=== PATIENT | male | born 1935 | race African-American/Black ===

== ENCOUNTER 2019-10-26 14:23 | Emergency (ER) | payer BC, MEDICARE ==
[~2019-10-26] VITALS: Ht 182.9 cm; Wt 79.0 kg
[2019-10-26 16:00] LABS: HEMATOCRIT. 39.1 % (42.0-52.0); HEMOGLOBIN. 12.6 g/dL (14.0-18.0); MEAN CORPUSCULAR HEMOGLOBIN 29.1 pg (28.0-32.0); MEAN CORPUSCULAR VOLUME 90.1 fL (80.0-94.0); MEAN PLATELET VOLUME 9.3 fl (7.4-10.4); PLATELET 135 x1000/uL (130-400); RED BLOOD CELL COUNT 4.33 mill/uL (4.7-6.1); RED CELL DISTRIBUTION WIDTH 19.3 % (11.6-14.6)
[2019-10-26 16:04] LABS: CHLORIDE 106 mEq/L (98-107)
[2019-10-26 16:13] LABS: D-DIMER 1.07 mg/L FEU (<0.50); INR 1.3; PARTIAL THROMBOPLASTIN TIME 24.7 sec (23.4-31.0); PROTHROMBIN TIME 13.7 sec (9.6-11.0)
[2019-10-26 16:39] LABS: PLATELET ESTIMATE NORMAL
[2019-10-26] MEDS ORDERED: FUROSEMIDE 40MG/4ML VIAL IV ONE (17:30)
[2019-10-26] MEDS ORDERED: NITROGLYCERIN OINT 1GM/INCH UDPKT TD ONE (17:30)
[2019-10-26] MEDS ORDERED: ASPIRIN 81MG TABLET PO ONE (17:30)
[2019-10-26] MEDS ORDERED: FUROSEMIDE 100MG/10ML VIAL IVP NR (19:00)
[2019-10-26] MEDS ORDERED: ACETAMINOPHEN 325MG TABLET PO PRN (19:00)
[2019-10-26] MEDS ORDERED: DOCUSATE SODIUM 100MG CAPSULE PO PRN (19:00)
[2019-10-26] MEDS ORDERED: IOHEXOL-350 100 ML BOTTLE ONE (19:29)
[2019-10-26] MEDS ORDERED: ENOXAPARIN 40MG/0.4ML SYR SUBCUT SCH (20:00)
[2019-10-26] MEDS ORDERED: ATORVASTATIN CALCIUM 40MG TABLET PO SCH (21:00)
[2019-10-26] MEDS ORDERED: ZOLPIDEM TARTRATE 5MG TABLET PO PRN (21:00)
[2019-10-27] MEDS: METOPROLOL TARTRATE 25MG TABLET PO SCH ×3 (02:12→13:05)
[2019-10-27] MEDS ORDERED: CLONIDINE 0.1MG TABLET PO PRN (04:15)
[2019-10-27 06:21] LABS: HEMOGLOBIN. 13.9 g/dL (14.0-18.0); MEAN CORPUSCULAR HEMOGLOBIN 29.4 pg (28.0-32.0); MEAN CORPUSCULAR VOLUME 90.8 fL (80.0-94.0); MEAN PLATELET VOLUME 9.1 fl (7.4-10.4); PLATELET 131 x1000/uL (130-400); RED BLOOD CELL COUNT 4.73 mill/uL (4.7-6.1); RED CELL DISTRIBUTION WIDTH 19.2 % (11.6-14.6)
[2019-10-27 06:24] LABS: CHLORIDE 105 mEq/L (98-107)
[2019-10-27 06:51] LABS: FOLIC ACID (FOLATE) SERUM 10.8 ng/mL (>5.38)
[2019-10-27 07:11] LABS: PLATELET ESTIMATE NORMAL
[2019-10-27 08:57] LABS: BG BASE EXCESS -1.3 mmol/L (-2.0-2.0); BG CARBOXYHEMOGLOBIN 1.1 % (0.5-1.5); BG DEOXYHEMOGLOBIN 3.7 % (0.0-5.0); BG FRACTION INSPIRED OXYGEN 21; BG HCO3 ACT 23.2 mmol/L (22.0-26.0); BG METHEMOGLOBIN 0.3 % (0.0-1.5); BG OXYGEN SATURATION 96.2 % (92.0-98.5); BG OXYHEMOGLOBIN 94.9 % (94.0-97.0); BG PCO2 38.5 mmHg (35.0-45.0); BG PH 7.398 (7.350-7.450); BG PO2 83.3 mmHg (75.0-100.0); BG SAMPLE SITE RIGHT BRACHIAL; BG TOTAL HEMOGLOBIN 13.3 g/dL (12.0-18.0); BG VENT MODE ROOM AIR
[2019-10-27] MEDS ORDERED: ALLOPURINOL 300 MG TABLET PO SCH (09:00)
[2019-10-27] MEDS ORDERED: SODIUM CHLORIDE 0.9% INJ 3ML FLUSH IVF SCH (14:00)
[2019-10-27 16:43] VITALS: BP 146/90
== END 2019-10-27 17:00 | disposition home or self-care (01) ==
LOC: ER 14:45 → EDBEDREQ 17:30 → CANRESERV 10-27 15:25 → ENRESERV 10-27 15:25 → SUPCPDRO 10-27 15:28 → CANBEDREQ 10-27 16:34 → ER 10-27 17:00
DX: I11.0 Hypertensive heart disease with heart failure (principal); I50.9 Heart failure, unspecified; R60.0 Localized edema; H40.9 Unspecified glaucoma; M10.9 Gout, unspecified; E78.00 Pure hypercholesterolemia, unspecified; M06.9 Rheumatoid arthritis, unspecified
CPT/HCPCS: 36415; 36600; 71045; 71275; 80053; 82375; 82607; 82746; 82805; 83880; 84443; 84484; 85025; 85379; 85610; 85730; 93005; 93970; 96372; 96374; 99285; J1650; J1940; Q9967

== ENCOUNTER 2020-05-06 09:38 | Inpatient (IN) | payer BC ==
[~2020-05-06] VITALS: Ht 175.3 cm; Wt 90.7 kg
[2020-05-06] MEDS ORDERED: SODIUM CHLORIDE 0.9% 1000ML BAG (SEPSIS BOLUS) IV ONE (10:00)
[2020-05-06] MEDS ORDERED: PIPERACILLIN/TAZOBACTAM 3.375GM/50ML PREMIX IV ONE (10:15)
[2020-05-06] MEDS ORDERED: PIPERACILLIN/TAZ 3.375G PREMIX 50 ML IV SCH (10:15)
[2020-05-06 10:32] LABS: HEMATOCRIT. 27.4 % (42.0-52.0); HEMOGLOBIN. 8.7 g/dL (14.0-18.0); MEAN CORPUSCULAR VOLUME 88.2 fL (80.0-94.0); MEAN PLATELET VOLUME 8.4 fl (7.4-10.4); PLATELET 76 x1000/uL (130-400); RED CELL DISTRIBUTION WIDTH 18.2 % (11.6-14.6)
[2020-05-06 10:40] LABS: CHLORIDE 116 mEq/L (98-107)
[2020-05-06 10:44] LABS: D-DIMER 0.86 mg/L FEU (<0.50); INR 1.7; PROTHROMBIN TIME 17.7 sec (9.6-11.0)
[2020-05-06 10:49] LABS: ETHANOL BLOOD < 10 mg/dL
[2020-05-06 10:54] LABS: CREATINE KINASE 120 IU/L (39-308)
[2020-05-06 11:12] LABS: PLATELET ESTIMATE DECREASED
[2020-05-06] MEDS ORDERED: DEXTROSE 50% WATER 50ML SYRINGE IV ONE ×2 (14:00)
[2020-05-06] MEDS ORDERED: NOREPINEPHRINE 8MG/250ML PMX 250 ML IV ONE (14:00)
[2020-05-06] MEDS ORDERED: INSULIN REGULAR (HUMULIN R) 300UNITS/3ML VIAL IV ONE (14:00)
[2020-05-06] MEDS ORDERED: CALCIUM GLUCONATE 1,000 MG in DEXT 5% WATER 100 ML IV ONE (14:00)
[2020-05-06 14:51] LABS: CLARITY URINE CLOUDY (CLEAR); COLOR URINE YELLOW (YELLOW); KETONES URINE NEGATIVE (NEGATIVE); LEUKOCYTE ESTERASE URINE 3+ (NEGATIVE); NITRITE URINE NEGATIVE (NEGATIVE); OCCULT BLOOD URINE 3+ (NEGATIVE); PROTEIN URINE 1+ (NEGATIVE); SPECIFIC GRAVITY URINE 1.015 (1.005-1.030); UROBILINOGEN URINE 0.2 E.U./dL (0.2-1.0)
[2020-05-06 15:05] LABS: *AMPHETAMINES SCREEN URINE NEGATIVE (NEGATIVE); *BARBITURATES SCREEN URINE NEGATIVE (NEGATIVE); *BENZODIAZEPINES SCREEN URINE NEGATIVE (NEGATIVE); *COCAINE SCREEN URINE NEGATIVE (NEGATIVE); METHADONE URINE SCREEN NEGATIVE (NEGATIVE); OPIATES URINE SCREEN NEGATIVE (NEGATIVE)
[2020-05-06 15:06] LABS: CANNABINOID URINE SCREEN NEGATIVE (NEGATIVE); PHENCYCLIDINE URINE SCREEN NEGATIVE (NEGATIVE)
[2020-05-06] MEDS ORDERED: LORAZEPAM 2MG/ML CPJ IV PRN (18:30)
[2020-05-06] MEDS ORDERED: ACETAMINOPHEN 650MG SUPP PR PRN ×2 (18:30)
[2020-05-06] MEDS: DEXT 5%/0.9% NACL 1,000 ML IV SCH (18:30)
[2020-05-06] MEDS ORDERED: NOREPINEPHRINE 8MG/250ML PMX 250 ML IV PRN (21:30)
[2020-05-07] MEDS: DEXT 5%/0.9% NACL 1,000 ML IV SCH ×2 (02:45→10:30)
[2020-05-07 04:41] LABS: HEMATOCRIT. 26.9 % (42.0-52.0); HEMOGLOBIN. 8.6 g/dL (14.0-18.0); MEAN CORPUSCULAR HEMOGLOBIN 27.9 pg (28.0-32.0); MEAN CORPUSCULAR VOLUME 87.9 fL (80.0-94.0); MEAN PLATELET VOLUME 9.1 fl (7.4-10.4); PLATELET 101 x1000/uL (130-400); RED BLOOD CELL COUNT 3.07 mill/uL (4.7-6.1); RED CELL DISTRIBUTION WIDTH 18.1 % (11.6-14.6)
[2020-05-07 04:48] LABS: CHLORIDE 120 mEq/L (98-107)
[2020-05-07] MEDS ORDERED: NOREPINEPHRINE 8 MG in DEXTROSE 5% WATER 250 ML IV PRN (05:00)
[2020-05-07 05:31] LABS: NUCLEATED RED BLOOD CELLS 2 /100 WBC; PLATELET ESTIMATE DECREASED
[2020-05-07] MEDS ORDERED: DEXTROSE 50% WATER 50ML SYRINGE IV ONE (06:15)
[2020-05-07] MEDS ORDERED: DEXT 10% WATER 1,000 ML IV ONE (06:15)
[2020-05-07] MEDS: INSULIN LISPRO (LOW DOSE) 100 UNITS/ML SUBCUT SCH ×3 (07:00→18:00)
[2020-05-07] MEDS ORDERED: SODIUM BICARBONATE 8.4% 1 MEQ/ML 50ML SYR IV NR (07:03)
[2020-05-07] MEDS ORDERED: SODIUM POLYSTYRENE SULFONATE 15 G/60 ML BOT NG NR (07:04)
[2020-05-07] MEDS: DEXTROSE 50% WATER 50ML SYRINGE IV NR ×2 (08:26→10:35)
[2020-05-07] MEDS ORDERED: DEXT 10% WATER 1,000 ML IV SCH (10:00)
[2020-05-07] MEDS: PANTOPRAZOLE SODIUM 40 MG/VIAL IV SCH (10:25)
[2020-05-07] MEDS: BLOOD SUGAR DIAGNOSTIC STRIP TEST SCH ×3 (11:52→21:00)
[2020-05-07] MEDS ORDERED: CEFTRIAXONE 1 G PREMIX 50 ML IV SCH (12:00)
[2020-05-07] MEDS: DEXT 10% WATER 1,000 ML IV SCH ×2 (12:45→17:45)
[2020-05-07 13:09] LABS: HEMATOCRIT. 29.5 % (42.0-52.0); HEMOGLOBIN. 9.4 g/dL (14.0-18.0); MEAN CORPUSCULAR HEMOGLOBIN 28.3 pg (28.0-32.0); MEAN CORPUSCULAR VOLUME 88.4 fL (80.0-94.0); MEAN PLATELET VOLUME 8.7 fl (7.4-10.4); PLATELET 109 x1000/uL (130-400); RED BLOOD CELL COUNT 3.34 mill/uL (4.7-6.1)
[2020-05-07 13:22] LABS: CHLORIDE 121 mEq/L (98-107)
[2020-05-07] MEDS: DEXTROSE 50% WATER 50ML SYRINGE IV PRN ×3 (13:39→18:55)
[2020-05-07 13:52] LABS: NUCLEATED RED BLOOD CELLS 3 /100 WBC; PLATELET ESTIMATE DECREASED
[2020-05-07] MEDS: CEFEPIME 1,000 MG in DEXTROSE 5% WATER 50 ML IV SCH (15:03)
[2020-05-07] MEDS ORDERED: SODIUM POLYSTYRENE SULFONATE 15 G/60 ML BOT PO NR (16:00)
[2020-05-07] MEDS: MIDODRINE HCL 5MG TABLET PO SCH ×2 (16:45→17:00)
[2020-05-07] MEDS: DEXTROSE 20% WATER 500 ML IV SCH ×2 (17:57→23:08)
[2020-05-07] MEDS: METRONIDAZOLE 500MG TABLET PO SCH (21:00)
[2020-05-08] VITALS (14 sets, daily range): BP systolic 104–157; BP diastolic 65–96
[2020-05-08] MEDS: CEFEPIME 1,000 MG in DEXTROSE 5% WATER 50 ML IV SCH ×2 (03:00→15:00)
[2020-05-08] MEDS: DEXTROSE 20% WATER 500 ML IV SCH ×3 (04:08→14:08)
[2020-05-08 05:19] LABS: HEMATOCRIT. 27.5 % (42.0-52.0); HEMOGLOBIN. 8.8 g/dL (14.0-18.0); MEAN CORPUSCULAR HEMOGLOBIN 28.3 pg (28.0-32.0); MEAN CORPUSCULAR VOLUME 88.3 fL (80.0-94.0); MEAN PLATELET VOLUME 8.8 fl (7.4-10.4); PLATELET 105 x1000/uL (130-400); RED BLOOD CELL COUNT 3.12 mill/uL (4.7-6.1); RED CELL DISTRIBUTION WIDTH 18.1 % (11.6-14.6)
[2020-05-08 05:31] LABS: CHLORIDE 121 mEq/L (98-107)
[2020-05-08] MEDS: INSULIN LISPRO (LOW DOSE) 100 UNITS/ML SUBCUT SCH ×4 (06:00→18:00)
[2020-05-08 07:09] LABS: NUCLEATED RED BLOOD CELLS 1 /100 WBC; PLATELET ESTIMATE SLIGHTLY DECREASED
[2020-05-08] MEDS: METRONIDAZOLE 500MG TABLET PO SCH ×2 (09:00→21:40)
[2020-05-08] MEDS: PANTOPRAZOLE SODIUM 40 MG/VIAL IV SCH (09:00)
[2020-05-08] MEDS: MIDODRINE HCL 5MG TABLET PO SCH ×3 (09:00→17:00)
[2020-05-08] MEDS ORDERED: DEXT 10% WATER 1,000 ML IV SCH (21:00)
[2020-05-08] MEDS: BLOOD SUGAR DIAGNOSTIC STRIP TEST SCH (21:34)
[2020-05-08] MEDS ORDERED: PNEUMOCOCCAL 23-VAL P-SAC VAC 0.5 ML IM ONE (22:45)
[2020-05-08] MEDS ORDERED: INFLUENZA VACCINE 05/PF 0.5 ML VIAL IM ONE (22:45)
[2020-05-09] VITALS (37 sets, daily range): BP systolic 96–176; BP diastolic 29–112
[2020-05-09] MEDS: INSULIN LISPRO (LOW DOSE) 100 UNITS/ML SUBCUT SCH
[2020-05-09] MEDS ORDERED: TRAV2.5D EACHEYE (01:53)
[2020-05-09] MEDS ORDERED: MIRT15TA6 MT (01:53)
[2020-05-09] MEDS ORDERED: CARV3.1242 MT (01:53)
[2020-05-09] MEDS ORDERED: LOSA1TAB37 MT (01:53)
[2020-05-09] MEDS ORDERED: MIRT-91 MT (01:53)
[2020-05-09] MEDS ORDERED: LEFL20TA17 MT (01:53)
[2020-05-09] MEDS ORDERED: HYDR200T80 MT (01:53)
[2020-05-09] MEDS ORDERED: ATOR20TA65 MT (01:53)
[2020-05-09] MEDS ORDERED: DEXTROSE 50% WATER 50ML SYRINGE IV PRN (02:30)
[2020-05-09] MEDS: INSULIN LISPRO 100 UNITS/ML SUBCUT SCH ×6 (02:30→22:30)
[2020-05-09] MEDS: BLOOD SUGAR DIAGNOSTIC STRIP TEST SCH ×11 (02:32→22:39)
[2020-05-09] MEDS ORDERED: BLOOD SUGAR DIAGNOSTIC STRIP TEST SCH (04:00)
[2020-05-09] MEDS ORDERED: INSULIN LISPRO 100 UNITS/ML SUBCUT SCH (04:00)
[2020-05-09] MEDS: CEFEPIME 1,000 MG in DEXTROSE 5% WATER 50 ML IV SCH ×2 (04:12→14:58)
[2020-05-09 06:08] LABS: HEMATOCRIT. 26.4 % (42.0-52.0); HEMOGLOBIN. 8.6 g/dL (14.0-18.0); MEAN CORPUSCULAR HEMOGLOBIN 28.3 pg (28.0-32.0); MEAN CORPUSCULAR VOLUME 86.7 fL (80.0-94.0); MEAN PLATELET VOLUME 8.7 fl (7.4-10.4); PLATELET 88 x1000/uL (130-400); RED BLOOD CELL COUNT 3.05 mill/uL (4.7-6.1); RED CELL DISTRIBUTION WIDTH 18.1 % (11.6-14.6)
[2020-05-09 06:10] LABS: CHLORIDE 121 mEq/L (98-107)
[2020-05-09 07:33] LABS: NUCLEATED RED BLOOD CELLS 1 /100 WBC; PLATELET ESTIMATE DECREASED
[2020-05-09] MEDS: PANTOPRAZOLE SODIUM 40 MG/VIAL IV SCH (08:45)
[2020-05-09] MEDS: MIDODRINE HCL 5MG TABLET PO SCH ×3 (08:45→17:00)
[2020-05-09] MEDS: METRONIDAZOLE 500MG TABLET PO SCH ×2 (08:45→21:58)
[2020-05-09] MEDS ORDERED: SODIUM BICARBONATE 8.4% 1 MEQ/ML 50ML SYR IV SCH (10:00)
[2020-05-09] MEDS: SODIUM BICARBONATE 150 MEQ in DEXTROSE 5% WATER 1,000 ML IV SCH (10:47)
[2020-05-09] MEDS: IPRATROPIUM/ALBUTEROL 0.5-3(2.5)MG/3ML NEB HHN SCH (21:30)
[2020-05-09] MEDS: DIPHENHYDRAMINE 50MG/ML VIAL IV PRN (23:39)
[2020-05-09] MEDS: ONDANSETRON HCL 4MG/2ML INJ IV PRN (23:39)
[2020-05-10] VITALS (12 sets, daily range): BP systolic 98–141; BP diastolic 52–105
[2020-05-10] MEDS: BLOOD SUGAR DIAGNOSTIC STRIP TEST SCH ×12 (00:30→23:09)
[2020-05-10] MEDS: IPRATROPIUM/ALBUTEROL 0.5-3(2.5)MG/3ML NEB HHN SCH ×4 (01:48→20:40)
[2020-05-10] MEDS: INSULIN LISPRO 100 UNITS/ML SUBCUT SCH ×6 (02:30→22:30)
[2020-05-10] MEDS: CEFEPIME 1,000 MG in DEXTROSE 5% WATER 50 ML IV SCH ×2 (03:02→15:35)
[2020-05-10] MEDS: SODIUM BICARBONATE 150 MEQ in DEXTROSE 5% WATER 1,000 ML IV SCH (03:02)
[2020-05-10 06:28] LABS: HEMOGLOBIN. 7.9 g/dL (14.0-18.0); MEAN CORPUSCULAR HEMOGLOBIN 28.2 pg (28.0-32.0); MEAN CORPUSCULAR VOLUME 85.4 fL (80.0-94.0); MEAN PLATELET VOLUME 9.1 fl (7.4-10.4); PLATELET 82 x1000/uL (130-400); RED BLOOD CELL COUNT 2.81 mill/uL (4.7-6.1); RED CELL DISTRIBUTION WIDTH 17.9 % (11.6-14.6)
[2020-05-10 06:38] LABS: CHLORIDE 116 mEq/L (98-107)
[2020-05-10] MEDS: PANTOPRAZOLE SODIUM 40 MG/VIAL IV SCH (08:14)
[2020-05-10] MEDS: METRONIDAZOLE 500MG TABLET PO SCH ×2 (08:14→20:53)
[2020-05-10] MEDS: ACETYLCYSTEINE 100MG/ML 10% VIAL 4ML INH SCH ×2 (08:37→20:40)
[2020-05-10] MEDS: MIDODRINE HCL 5MG TABLET PO SCH ×3 (08:40→16:53)
[2020-05-10 10:49] LABS: NUCLEATED RED BLOOD CELLS 2 /100 WBC
[2020-05-10 10:50] LABS: PLATELET ESTIMATE DECREASED
[2020-05-10] MEDS: SODIUM CHLORIDE 0.45% 1,000 ML IV SCH (13:26)
[2020-05-11] VITALS (12 sets, daily range): BP systolic 116–140; BP diastolic 66–83
[2020-05-11] MEDS: BLOOD SUGAR DIAGNOSTIC STRIP TEST SCH ×9 (01:00→18:36)
[2020-05-11] MEDS: IPRATROPIUM/ALBUTEROL 0.5-3(2.5)MG/3ML NEB HHN SCH ×4 (02:21→20:29)
[2020-05-11] MEDS: INSULIN LISPRO 100 UNITS/ML SUBCUT SCH ×3 (02:30→10:30)
[2020-05-11] MEDS: SODIUM CHLORIDE 0.45% 1,000 ML IV SCH ×2 (03:19→18:39)
[2020-05-11] MEDS: CEFEPIME 1,000 MG in DEXTROSE 5% WATER 50 ML IV SCH ×2 (03:23→15:38)
[2020-05-11 06:09] LABS: HEMATOCRIT. 25.7 % (42.0-52.0); HEMOGLOBIN. 8.4 g/dL (14.0-18.0); MEAN CORPUSCULAR HEMOGLOBIN 28.2 pg (28.0-32.0); MEAN CORPUSCULAR VOLUME 86.1 fL (80.0-94.0); PLATELET 79 x1000/uL (130-400); RED BLOOD CELL COUNT 2.98 mill/uL (4.7-6.1); RED CELL DISTRIBUTION WIDTH 18.3 % (11.6-14.6)
[2020-05-11 06:11] LABS: CHLORIDE 114 mEq/L (98-107)
[2020-05-11] MEDS: ACETYLCYSTEINE 100MG/ML 10% VIAL 4ML INH SCH ×3 (08:36→20:29)
[2020-05-11] MEDS: METRONIDAZOLE 500MG TABLET PO SCH ×2 (08:42→23:14)
[2020-05-11] MEDS: PANTOPRAZOLE SODIUM 40 MG/VIAL IV SCH (08:42)
[2020-05-11] MEDS: MIDODRINE HCL 5MG TABLET PO SCH (08:43)
[2020-05-11 08:45] LABS: NUCLEATED RED BLOOD CELLS 2 /100 WBC
[2020-05-11 08:46] LABS: PLATELET ESTIMATE DECREASED
[2020-05-11] MEDS ORDERED: INSULIN LISPRO 100 UNITS/ML SUBCUT SCH (12:45)
[2020-05-12] VITALS (21 sets, daily range): BP systolic 127–157; BP diastolic 66–89
[2020-05-12] MEDS: IPRATROPIUM/ALBUTEROL 0.5-3(2.5)MG/3ML NEB HHN SCH ×5 (02:14→19:57)
[2020-05-12] MEDS: CEFEPIME 1,000 MG in DEXTROSE 5% WATER 50 ML IV SCH (03:10)
[2020-05-12] MEDS: SODIUM CHLORIDE 0.45% 1,000 ML IV SCH ×2 (05:25→17:49)
[2020-05-12] MEDS: BLOOD SUGAR DIAGNOSTIC STRIP TEST SCH ×4 (05:36→17:48)
[2020-05-12 06:50] LABS: HEMATOCRIT. 21.7 % (42.0-52.0); HEMOGLOBIN. 7.1 g/dL (14.0-18.0); MEAN CORPUSCULAR HEMOGLOBIN 27.7 pg (28.0-32.0); MEAN CORPUSCULAR VOLUME 85.1 fL (80.0-94.0); PLATELET 72 x1000/uL (130-400); RED BLOOD CELL COUNT 2.55 mill/uL (4.7-6.1); RED CELL DISTRIBUTION WIDTH 18.1 % (11.6-14.6)
[2020-05-12 06:53] LABS: CHLORIDE 114 mEq/L (98-107)
[2020-05-12] MEDS: PANTOPRAZOLE SODIUM 40 MG/VIAL IV SCH (08:58)
[2020-05-12] MEDS: METRONIDAZOLE 500MG TABLET PO SCH (08:58)
[2020-05-12] MEDS: ACETYLCYSTEINE 100MG/ML 10% VIAL 4ML INH SCH ×2 (12:50→18:05)
[2020-05-12 14:50] LABS: NUCLEATED RED BLOOD CELLS 1 /100 WBC
[2020-05-12 14:51] LABS: PLATELET ESTIMATE DECREASED
[2020-05-12 17:37] LABS: HEMATOCRIT 24.4 % (42.0-52.0); HEMOGLOBIN 8.1 g/dL (14.0-18.0)
[2020-05-12 17:48] LABS: INR 1.4; PROTHROMBIN TIME 14.6 sec (9.6-11.0)
[2020-05-12] MEDS ORDERED: *PATIENT'S OWN MEDICATION STORAGE XX SCH (18:45)
[2020-05-13] VITALS (12 sets, daily range): BP systolic 124–151; BP diastolic 63–93
[2020-05-13] MEDS: BLOOD SUGAR DIAGNOSTIC STRIP TEST SCH ×5 (00:29→23:52)
[2020-05-13] MEDS: IPRATROPIUM/ALBUTEROL 0.5-3(2.5)MG/3ML NEB HHN SCH ×3 (01:25→20:15)
[2020-05-13 06:45] LABS: HEMATOCRIT. 25.2 % (42.0-52.0); HEMOGLOBIN. 8.6 g/dL (14.0-18.0); MEAN CORPUSCULAR HEMOGLOBIN 29.1 pg (28.0-32.0); MEAN CORPUSCULAR VOLUME 85.7 fL (80.0-94.0); MEAN PLATELET VOLUME 9.2 fl (7.4-10.4); PLATELET 72 x1000/uL (130-400); RED BLOOD CELL COUNT 2.94 mill/uL (4.7-6.1)
[2020-05-13 06:58] LABS: CHLORIDE 116 mEq/L (98-107)
[2020-05-13] MEDS: SODIUM CHLORIDE 0.45% 1,000 ML IV SCH ×2 (08:10→21:11)
[2020-05-13] MEDS: PANTOPRAZOLE SODIUM 40 MG/VIAL IV SCH (08:15)
[2020-05-13] MEDS: DILTIAZEM HCL 30MG TABLET PO SCH ×3 (12:22→23:48)
[2020-05-13 12:31] LABS: PLATELET ESTIMATE DECREASED
[2020-05-13] MEDS: ACETYLCYSTEINE 100MG/ML 10% VIAL 4ML INH SCH ×2 (13:05→15:01)
[2020-05-14] VITALS (12 sets, daily range): BP systolic 126–159; BP diastolic 69–97
[2020-05-14] MEDS: IPRATROPIUM/ALBUTEROL 0.5-3(2.5)MG/3ML NEB HHN SCH ×4 (01:54→21:22)
[2020-05-14] MEDS: DILTIAZEM HCL 30MG TABLET PO SCH ×4 (05:27→23:49)
[2020-05-14] MEDS: BLOOD SUGAR DIAGNOSTIC STRIP TEST SCH ×4 (05:53→23:49)
[2020-05-14 06:30] LABS: HEMATOCRIT. 25.8 % (42.0-52.0); HEMOGLOBIN. 8.7 g/dL (14.0-18.0); MEAN CORPUSCULAR HEMOGLOBIN 29.8 pg (28.0-32.0); MEAN CORPUSCULAR VOLUME 88.2 fL (80.0-94.0); MEAN PLATELET VOLUME 8.6 fl (7.4-10.4); PLATELET 71 x1000/uL (130-400); RED BLOOD CELL COUNT 2.93 mill/uL (4.7-6.1); RED CELL DISTRIBUTION WIDTH 16.8 % (11.6-14.6)
[2020-05-14] MEDS: ACETYLCYSTEINE 100MG/ML 10% VIAL 4ML INH SCH (07:19)
[2020-05-14 07:23] LABS: CHLORIDE 115 mEq/L (98-107)
[2020-05-14] MEDS: PANTOPRAZOLE SODIUM 40 MG/VIAL IV SCH (08:48)
[2020-05-14] MEDS: SODIUM CHLORIDE 0.45% 1,000 ML IV SCH (10:22)
[2020-05-14 12:26] LABS: PLATELET ESTIMATE DECREASED
[2020-05-15] VITALS (12 sets, daily range): BP systolic 135–173; BP diastolic 73–98
[2020-05-15] MEDS: IPRATROPIUM/ALBUTEROL 0.5-3(2.5)MG/3ML NEB HHN SCH ×4 (01:45→21:47)
[2020-05-15] MEDS: SODIUM CHLORIDE 0.45% 1,000 ML IV SCH ×2 (06:32→21:06)
[2020-05-15] MEDS: DILTIAZEM HCL 30MG TABLET PO SCH ×2 (06:33→12:16)
[2020-05-15] MEDS: BLOOD SUGAR DIAGNOSTIC STRIP TEST SCH ×4 (06:33→20:16)
[2020-05-15] MEDS: PANTOPRAZOLE SODIUM 40 MG/VIAL IV SCH (08:01)
[2020-05-15] MEDS ORDERED: DILT240C91 MT (15:46)
[2020-05-15] MEDS: DILTIAZEM HCL 60MG TABLET PO SCH (17:01)
[2020-05-16] VITALS (11 sets, daily range): BP systolic 126–162; BP diastolic 64–95
[2020-05-16] MEDS: DILTIAZEM HCL 60MG TABLET PO SCH ×5 (00:16→23:14)
[2020-05-16] MEDS: IPRATROPIUM/ALBUTEROL 0.5-3(2.5)MG/3ML NEB HHN SCH ×4 (02:12→20:16)
[2020-05-16] MEDS: BLOOD SUGAR DIAGNOSTIC STRIP TEST SCH ×4 (07:30→21:00)
[2020-05-16] MEDS: SODIUM CHLORIDE 0.45% 1,000 ML IV SCH ×3 (08:45→22:34)
[2020-05-16] MEDS: PANTOPRAZOLE SODIUM 40 MG/VIAL IV SCH (08:45)
[2020-05-16 09:53] LABS: BASOPHILS % 1.1 % (0.0-2.0); EOSINOPHILS % 2.4 % (0.0-5.0); HEMATOCRIT. 26.6 % (42.0-52.0); HEMOGLOBIN. 8.6 g/dL (14.0-18.0); LYMPHOCYTES % 9.4 % (20.0-50.0); MEAN CORPUSCULAR HEMOGLOBIN 28.6 pg (28.0-32.0); MEAN CORPUSCULAR VOLUME 88.1 fL (80.0-94.0); MEAN PLATELET VOLUME 9.8 fl (7.4-10.4); MONOCYTES % 7.6 % (2.0-8.0); NEUTROPHILS % 79.5 % (40.0-76.0); PLATELET 100 x1000/uL (130-400); RED BLOOD CELL COUNT 3.02 mill/uL (4.7-6.1); RED CELL DISTRIBUTION WIDTH 17.5 % (11.6-14.6)
[2020-05-16 10:24] LABS: CHLORIDE 110 mEq/L (98-107)
[2020-05-17] VITALS (7 sets, daily range): BP systolic 120–146; BP diastolic 57–86
[2020-05-17] MEDS: IPRATROPIUM/ALBUTEROL 0.5-3(2.5)MG/3ML NEB HHN SCH ×4 (02:15→20:30)
[2020-05-17] MEDS: DILTIAZEM HCL 60MG TABLET PO SCH ×4 (05:57→23:34)
[2020-05-17] MEDS: BLOOD SUGAR DIAGNOSTIC STRIP TEST SCH ×4 (07:20→20:43)
[2020-05-17] MEDS: PANTOPRAZOLE SODIUM 40 MG/VIAL IV SCH (08:22)
[2020-05-17] MEDS: SODIUM CHLORIDE 0.45% 1,000 ML IV SCH (11:57)
[2020-05-18] VITALS: BP 142/78
[2020-05-18] MEDS: IPRATROPIUM/ALBUTEROL 0.5-3(2.5)MG/3ML NEB HHN SCH ×4 (00:31→21:34)
[2020-05-18] MEDS: DIPHENHYDRAMINE 50MG/ML VIAL IV PRN (00:40)
[2020-05-18] MEDS: ONDANSETRON HCL 4MG/2ML INJ IV PRN (02:49)
[2020-05-18 03:30] VITALS: BP 155/86
[2020-05-18] MEDS: DILTIAZEM HCL 60MG TABLET PO SCH ×3 (05:05→17:51)
[2020-05-18] MEDS: SODIUM CHLORIDE 0.45% 1,000 ML IV SCH ×2 (06:45→21:41)
[2020-05-18 08:00] VITALS: BP 175/87
[2020-05-18] MEDS: PANTOPRAZOLE SODIUM 40 MG/VIAL IV SCH (08:07)
[2020-05-18] MEDS ORDERED: CLONIDINE 0.1MG TABLET PO NR (08:15)
[2020-05-18] MEDS: BLOOD SUGAR DIAGNOSTIC STRIP TEST SCH ×4 (08:18→21:00)
[2020-05-18 12:00] VITALS: BP 146/82
[2020-05-18] MEDS: HYDRALAZINE HCL 50MG TABLET PO SCH ×2 (12:01→21:38)
[2020-05-18 16:00] VITALS: BP 126/72
[2020-05-18 20:00] VITALS: BP 141/78
[2020-05-19] VITALS (7 sets, daily range): BP systolic 112–168; BP diastolic 57–89
[2020-05-19] MEDS: DILTIAZEM HCL 60MG TABLET PO SCH ×4 (01:48→19:25)
[2020-05-19] MEDS: IPRATROPIUM/ALBUTEROL 0.5-3(2.5)MG/3ML NEB HHN SCH ×4 (02:38→20:40)
[2020-05-19] MEDS: BLOOD SUGAR DIAGNOSTIC STRIP TEST SCH ×2 (07:20→12:20)
[2020-05-19] MEDS: PANTOPRAZOLE SODIUM 40 MG/VIAL IV SCH (08:55)
[2020-05-19] MEDS: HYDRALAZINE HCL 50MG TABLET PO SCH (09:42)
[2020-05-19] MEDS: SODIUM CHLORIDE 0.45% 1,000 ML IV SCH (11:21)
[2020-05-19 14:18] LABS: VITAMIN B12 SERUM > 2000.0 pg/mL (211-911)
[2020-05-19] MEDS: HYDRALAZINE HCL 100MG TABLET PO SCH (20:34)
[2020-05-19 22:15] LABS: BASOPHILS % 3.5 % (0.0-2.0); EOSINOPHILS % 2.7 % (0.0-5.0); HEMATOCRIT. 26.6 % (42.0-52.0); HEMOGLOBIN. 8.7 g/dL (14.0-18.0); MEAN CORPUSCULAR HEMOGLOBIN 29.1 pg (28.0-32.0); MEAN CORPUSCULAR VOLUME 88.3 fL (80.0-94.0); MEAN PLATELET VOLUME 9.1 fl (7.4-10.4); MONOCYTES % 11.3 % (2.0-8.0); NEUTROPHILS % 73.5 % (40.0-76.0); PLATELET 171 x1000/uL (130-400); RED BLOOD CELL COUNT 3.01 mill/uL (4.7-6.1); RED CELL DISTRIBUTION WIDTH 18.2 % (11.6-14.6)
[2020-05-19 22:32] LABS: CHLORIDE 110 mEq/L (98-107)
[2020-05-20] VITALS: BP 140/77
[2020-05-20] MEDS: DILTIAZEM HCL 60MG TABLET PO SCH ×4 (00:29→17:39)
[2020-05-20] MEDS: SODIUM CHLORIDE 0.45% 1,000 ML IV SCH ×2 (00:29→15:12)
[2020-05-20] MEDS: IPRATROPIUM/ALBUTEROL 0.5-3(2.5)MG/3ML NEB HHN SCH ×4 (02:31→21:02)
[2020-05-20 04:00] VITALS: BP 160/74
[2020-05-20 08:00] VITALS: BP 122/63
[2020-05-20] MEDS: PANTOPRAZOLE SODIUM 40 MG/VIAL IV SCH (09:09)
[2020-05-20] MEDS: HYDRALAZINE HCL 100MG TABLET PO SCH ×2 (09:18→20:53)
[2020-05-20 12:00] VITALS: BP 121/62
[2020-05-20 16:00] VITALS: BP 110/57
[2020-05-20 20:00] VITALS: BP 121/63
[2020-05-21] VITALS: BP 124/65
[2020-05-21] MEDS: IPRATROPIUM/ALBUTEROL 0.5-3(2.5)MG/3ML NEB HHN SCH ×3 (01:48→13:36)
[2020-05-21] MEDS: SODIUM CHLORIDE 0.45% 1,000 ML IV SCH (02:16)
[2020-05-21 04:00] VITALS: BP 121/60
[2020-05-21] MEDS: DILTIAZEM HCL 60MG TABLET PO SCH ×3 (05:54→12:57)
[2020-05-21 08:10] VITALS: BP 138/75
[2020-05-21] MEDS: PANTOPRAZOLE SODIUM 40 MG/VIAL IV SCH (08:27)
[2020-05-21] MEDS: HYDRALAZINE HCL 100MG TABLET PO SCH (08:27)
[2020-05-21 12:11] VITALS: BP 131/71
[2020-05-21 14:55] VITALS: BP 138/74
== END 2020-05-21 15:19 | DRG 871 ==
LOC: ER 09:45 → EDBEDREQ 13:36 → MICUSO 13:52 → EDBEDREQSVC 13:53 → CVICU 05-08 18:39 → 5EST 05-09 16:41 → 6WST 05-18 14:16
PROVIDERS: ADMIT Ophthalmology; ATTEND Ophthalmology
PROC: 30233N1 Transfusion of Nonautologous Red Blood Cells into Peripheral Vein, Percutaneous Approach (ICD-10-PCS; principal; 2020-05-06)
PROC: 02HV33Z Insertion of Infusion Device into Superior Vena Cava, Percutaneous Approach (ICD-10-PCS; 2020-05-06)
DX: A41.9 Sepsis, unspecified organism (principal); J18.9 Pneumonia, unspecified organism; R65.21 Severe sepsis with septic shock; G93.41 Metabolic encephalopathy; N39.0 Urinary tract infection, site not specified; N17.9 Acute kidney failure, unspecified; E44.0 Moderate protein-calorie malnutrition; D68.9 Coagulation defect, unspecified; D61.818 Other pancytopenia; E87.2 Acidosis; R17 Unspecified jaundice; N18.9 Chronic kidney disease, unspecified; I12.9 Hypertensive chronic kidney disease with stage 1 through stage 4 chronic kidney disease, or unspecified chronic kidney disease; E11.22 Type 2 diabetes mellitus with diabetic chronic kidney disease; E11.649 Type 2 diabetes mellitus with hypoglycemia without coma; E87.5 Hyperkalemia; E87.8 Other disorders of electrolyte and fluid balance, not elsewhere classified; B96.89 Other specified bacterial agents as the cause of diseases classified elsewhere; D50.9 Iron deficiency anemia, unspecified; F03.90 Unspecified dementia, unspecified severity, without behavioral disturbance, psychotic disturbance, mood disturbance, and anxiety; H40.9 Unspecified glaucoma; I48.0 Paroxysmal atrial fibrillation; M06.9 Rheumatoid arthritis, unspecified; M17.0 Bilateral primary osteoarthritis of knee; M1A.9XX0 Chronic gout, unspecified, without tophus (tophi); S30.0XXA Contusion of lower back and pelvis, initial encounter; X58.XXXA Exposure to other specified factors, initial encounter; R74.01 Elevation of levels of liver transaminase levels; S00.432A Contusion of left ear, initial encounter; R13.10 Dysphagia, unspecified; Y93.89 Activity, other specified; Z86.73 Personal history of transient ischemic attack (TIA), and cerebral infarction without residual deficits; Y92.89 Other specified places as the place of occurrence of the external cause; Y99.8 Other external cause status; Z68.29 Body mass index [BMI] 29.0-29.9, adult; Z79.899 Other long term (current) drug therapy
CPT/HCPCS: 36415; 70551; 71045; 80048; 80053; 80076; 80305; 80320; 81003; 82140; 82550; 82607; 82962; 83605; 83880; 84145; 84443; 84484; 85014; 85018; 85025; 85379; 86850; 86900; 86920; 87015; 87045; 87077; 87186; 87427; 87449; 87493; 92610; 93005; 93306; 93970; 95816; 96365; 97110; 97162; 97166; 97530; 99291; A6261; C1893; C9113; J0610; J0692; J0696; J1200; J1815; J2405; J2543; J3490; J7030; J7060; J7070; J7608; P9016; A4315; G0480